=== PATIENT | female | born 1980 | race Caucasian/White ===

== ENCOUNTER 2016-04-26 15:13 | Emergency (ER) | payer SELFPAY ==
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
--- NOTE | 2016-04-26 19:04 | ED MED RECONCILIATION SUMMARY ---
Patient: EMILIE SANDS Medication Reconciliation Report [facility] VisitID: [id number] [address] [place] [address] 35y, F Registration Date/Time: 04/26/2016 Weight: 82.5 kg Height/Length: 63 in. BMI: 32.2 ALLERGIES: No Known Drug Allergy The patient's Home Medications are listed below: THE FOLLOWING MEDICATIONS NEED TO BE RECONCILED: HydrOXYzine HCl Oral Ibuprofen Oral LaMICtal Oral SEROquel Oral TraZODone HCl Oral The source(s) of the original Home Medication information: Not obtained. The following Medications were given to the patient in the Emergency Department: Ibuprofen [PO] PO 600 mg, administered: 04/26/2016 4:20:00 PM The following Medications were prescribed to the patient: Flexeril 10 mg: Take 1 orally every 8 hours as needed for muscle spasm. Dispense twenty (20). No refills. Substitution is permissible. -- Luna Arevalo, Blu.R.N.P. Ultram 50 mg tablets: take 1-2 orally every 6 hours as needed for pain. Dispense twenty (20). No refills. Substitution is permissible. -- Luna Arevalo A.R.N.P.
--- NOTE | 2016-04-26 19:04 | ED MAR SUMMARY ---
..... Medication Administration Record [facility] [address] [place] [address] Patient: EMILIE SANDS Visit ID: [id number] 35y, F Weight: 82.5 kg Height/Length: 63 in BMI: 32.2 ALLERGIES: No Known Drug Allergy Given 16:20 04/26/2016 Sapna Cordon R.N. Medication Administered: IBUPROFEN [PO], Dose: 600 mg Capsules PO. Medication Ordered: Ibuprofen PO 600 mg (NOW).
--- NOTE | 2016-04-26 19:04 | ED ORDER SUMMARY ---
..... Patient: EMILIE SANDS OrderSheet [facility] VisitID: [id number] [address] [place] [address] 35y, F Registration Date/Time: 04/26/2016 ORDER SHEET Weight: 82.5 kg (stated) Allergies: No Known Drug Allergy GENERAL ORDERS: MEDICATION ORDERS: Ibuprofen PO 600 mg (NOW) (16:29 04/26/2016 LWhaledwige R.N. verbal order read back to Judith A.R.N.P.) (16:30 LWhaledwige R.N.) IV FLUIDS: ORDER SHEET NOTES: [Electronically signed by Luna Arevalo.R.N.PChandrika (16:30 04/26/2016)] [Electronically signed by Sapna Cordon R.N. (19:03 04/26/2016)] [Electronically locked/signed by Sapna Cordon R.N. (19:04/26/2016)]
--- NOTE | 2016-04-26 19:04 | ED MAR SUMMARY ---
..... Medication Administration Record [facility] [address] [place] [address] Patient: EMILIE SANDS Visit ID: [id number] 35y, F Weight: 82.5 kg Height/Length: 63 in BMI: 32.2 ALLERGIES: No Known Drug Allergy Given 16:20 04/26/2016 Sanpa Cordon R.N. Medication Administered: IBUPROFEN [PO], Dose: 600 mg Capsules PO. Medication Ordered: Ibuprofen PO 600 mg (NOW).
--- NOTE | 2016-04-26 19:04 | ED MED RECONCILIATION SUMMARY ---
Patient: EMILIE SANDS Medication Reconciliation Report [facility] VisitID: [id number] [address] [place] [address] 35y, F Registration Date/Time: 04/26/2016 Weight: 82.5 kg Height/Length: 63 in. BMI: 32.2 ALLERGIES: No Known Drug Allergy The patient's Home Medications are listed below: THE FOLLOWING MEDICATIONS NEED TO BE RECONCILED: HydrOXYzine HCl Oral Ibuprofen Oral LaMICtal Oral SEROquel Oral TraZODone HCl Oral The source(s) of the original Home Medication information: Not obtained. The following Medications were given to the patient in the Emergency Department: Ibuprofen [PO] PO 600 mg, administered: 04/26/2016 4:20:00 PM The following Medications were prescribed to the patient: Flexeril 10 mg: Take 1 orally every 8 hours as needed for muscle spasm. Dispense twenty (20). No refills. Substitution is permissible. -- Luna Arevalo, Blu.R.N.P. Ultram 50 mg tablets: take 1-2 orally every 6 hours as needed for pain. Dispense twenty (20). No refills. Substitution is permissible. -- Luna Arevalo A.R.N.P.
--- NOTE | 2016-04-26 19:04 | ED ORDER SUMMARY ---
..... Patient: EMILIE SANDS OrderSheet [facility] VisitID: [id number] [address] [place] [address] 35y, F Registration Date/Time: 04/26/2016 ORDER SHEET Weight: 82.5 kg (stated) Allergies: No Known Drug Allergy GENERAL ORDERS: MEDICATION ORDERS: Ibuprofen PO 600 mg (NOW) (16:29 04/26/2016 LWhaledwige R.N. verbal order read back to Judith A.R.N.P.) (16:30 LWhaledwige R.N.) IV FLUIDS: ORDER SHEET NOTES: [Electronically signed by Luna Arevalo.R.N.PChandrika (16:30 04/26/2016)] [Electronically signed by Sapna Cordon R.N. (19:03 04/26/2016)] [Electronically locked/signed by Sapna Cordon R.N. (19:04/26/2016)]
== END 2016-04-26 16:30 | disposition home or self-care (01) ==
LOC: ED SRH 15:13
DX: S16.1XXA Strain of muscle, fascia and tendon at neck level, initial encounter (principal); S39.012A Strain of muscle, fascia and tendon of lower back, initial encounter; V43.52XA Car driver injured in collision with other type car in traffic accident, initial encounter; Y92.410 Unspecified street and highway as the place of occurrence of the external cause; F17.210 Nicotine dependence, cigarettes, uncomplicated